=== PATIENT | male | born 1945 | race Caucasian/White ===

== ENCOUNTER 2021-01-15 06:18 | Day surgery (SDC) | payer MEDICARE, BC ==
[~2021-01-15] VITALS: Ht 182.9 cm; Wt 108.2 kg
[2021-01-15] VITALS (11 sets, daily range): BP systolic 91–122; BP diastolic 32–54; PULSE 61–92; TEMP 97.5–99.4
[~2021-01-15 06:18] MED LIST: AFRIN 15 ML15 ML NS; ASPIR-LOW81 MG PO; ATENOLOL25 MG PO; FISH OIL CONC1000 MG PO; HCTZ 25MG25 MG PO; LISINOPRIL; LORTAB 5/500 501 TAB PO; NIACIN 250250 MG/CAP PO; SUDAFED 12HR120 MG PO; VITAMIN C500 MG PO; ZOCOR80 MG PO; ZYRTEC 10MG
[2021-01-15] MEDS ORDERED: GLUCOPHAGE500 MG/TAB PO (07:30)
[2021-01-15] MEDS ORDERED: LASIX 40MG TABL40 MG PO (07:32)
[2021-01-15] MEDS ORDERED: COREG 6.256.25 MG/TA PO (07:32)
[2021-01-15] MEDS ORDERED: PRINIVIL40 MG PO (07:33)
[2021-01-15] MEDS ORDERED: ZYLOPRIM 300MG300 MG PO (07:34)
[2021-01-15] MEDS ORDERED: ALDACTONE 25MG25 M1 PO (07:34)
[2021-01-15] MEDS ORDERED: MAGNESIUM500 MG PO (07:35)
[2021-01-15] MEDS ORDERED: LIPITOR 40MG TA40 MG PO (07:35)
[2021-01-15] MEDS ORDERED: VITAMIN C500 MG PO (07:36)
[2021-01-15] MEDS ORDERED: IPRATROPIUM BROM3 M1 IH (07:37)
[2021-01-15] MEDS ORDERED: VITAMIN FLUSH-F1 CAP PO (07:37)
--- NOTE | 2021-01-15 09:55 | NUR ---
PATIENT ADMITED INTO ROOM 346 POST OP TURBT. A&O. NOTED SOFT B/P'S IN THE 90'S SYSTOLIC AND 30'S DIASTOLIC, ALL OTHER VSS. CHIN TO DD WITH CBI INFUSING AT MOD RATE. NOTED LARGE AMOUNTS OF CLEAR PEACH COLORED URINE. IV FLUIDS INFUSING INTO RIGHT FORARM IV. BS IN PACU WAS 113. NO C/O N/V. LIQUIDS AT BEDSIDE. HEAD TO TOE ASSESSMENT COMPLETE. AT BEDSIDE. CALL LIGHT IN REACH.
--- NOTE | 2021-01-15 22:03 | NUR ---
Patient assessed around 2029. Alert and oriented, and able to make needs known. Complained of level 7 pain to bladder. Given PRN B&O suppository per orders. Medication effective within 20 minutes. Denies SOB and dyspnea. LS CTA. Respirations even and unlabored. HRR. Capillary less than 3 seconds. Non-tenting skin turgor. BSAx4. Indwelling diallo catheter patent. CBI running, slow. Output peach/clear. No clots noted. No edema. Patient resting in bed with call light within reach. Voices no questions, needs, or concernsa t this time.
--- NOTE | 2021-01-15 23:58 | NUR ---
Patient given B&O suppository for bladder discomfort at this time. Voices no further questions, needs, or concerns at this time. CBI running slow, with peach, clear urine. No clots.
[2021-01-16 03:51] VITALS: BP 102/39; PULSE 73; TEMP 99.3
--- NOTE | 2021-01-16 05:50 | NUR ---
CBI continues at slow rate, with pale yellow output. Denies pain and discomfort at this time, stating he is feeling much better today than last night. Patient voices no questions, needs, or concerns at this time. Resting in bed with call light within reach.
[2021-01-16 07:44] VITALS: BP 99/74; PULSE 73; TEMP 98.9
--- NOTE | 2021-01-16 08:45 | NUR ---
PT RESTING IN BED WITH CBI RUNNING, VSS ASSESMENTS WNL. IV RUNNING. 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
[2021-01-16 12:00] VITALS: BP 115/49; PULSE 66; TEMP 97.7
[2021-01-16 15:18] VITALS: BP 118/51; PULSE 69; TEMP 98.5
--- NOTE | 2021-01-16 16:07 | NUR ---
Hospital Coordinator met with patient to discuss discharge plan. Patient's , Michelle (ph#[phone]) is at bedside. Patient lives with his in [place] and sees Dr. Carr for primary care. Patient obtains medications from [facility] with no difficulties. Patient uses a CPAP and no other DME. Patient is independent with ADLS. Patient reports he has completed Advance Directives in his trust. Patient plans to return home upon discharge. Discharge Plan: Home
[2021-01-16 21:20] VITALS: BP 100/66; PULSE 64; TEMP 97.9
--- NOTE | 2021-01-16 23:31 | NUR ---
Patient assesed around 2029. Alert and oriented, and able to make needs known. Given PRN levsin for mild bladder spasms, then a B&O suppository around 2200. INT to right forearm. Denies SOB and dyspnea. LS CTA. Respirations even and unlabored. HRR. Capillary refill less thna 3 seconds. Non-tenting skin turgor. BSAx4. Abdomen soft and non-tender. No edema. SCDs on. Indwelling diallo catheter. CBI continues, slow, with peach, clear urine output. Voices no questions, needs, or concerns at this time. Resting in bed with call light within reach.
[2021-01-16 23:42] VITALS: BP 111/53; PULSE 69; TEMP 98.1
--- NOTE | 2021-01-17 02:48 | NUR ---
Patient woke up confused around 0215. Reoriented patient, bed alarm on bed. Voices no questions, needs, or concerns at this time. Resting in bed with call light within reach.
[2021-01-17 04:24] VITALS: BP 100/42; PULSE 60; TEMP 98.4
--- NOTE | 2021-01-17 05:40 | NUR ---
Urine has been clear. CBI continues to be connected, but is not flowing at this time. Urine remain peach and clear. Denies having pain and discomfort at this time. Patient's Lasix not given at this time due to low BP. Patient voice no questions, needs, or concerns at this time, except asking when he will get his mitomycin. Explained to patient that the Dye Weigher Helper on day shift will be the one to give medication, and we can let him know an approximate time after she is here. Voiced understanding. Resting in bed with call light within reach. Bed alarm on.
[2021-01-17 08:04] VITALS: BP 90/53; PULSE 64; TEMP 98.8
--- NOTE | 2021-01-17 08:36 | NUR ---
PT RESTING IN BED. CBI STOPPED OVERNIGHT. DR CARROLL IN TO SEE PT THIS AM. RAFA DE LOS SANTOS RN TO ADMINISTER MITOMYCIN. PLAN ON DISCHARGE LATER THIS PM. PT IS A/O X3 THIS AM. EATING AND DRINKING SIN N/V. PAIN CONTROLLED AT THIS TIME.
--- NOTE | 2021-01-17 09:23 | NUR ---
Initial visit; Patient and his Michelle state that Yury did not receive good news this morning. Patient stated that Michelle needed the help and support right at this moment. Flotation Tender Helper talked with Michelle about Flotation Tender Helper availability and gave her Flotation Tender Helper's card. Flotation Tender Helper offered additional comfort and prayer and will continue to look in on Yury and Michelle.
[2021-01-17 12:21] VITALS: BP 103/44; PULSE 64; TEMP 98.8
--- NOTE | 2021-01-17 15:37 | NUR ---
DISCHARGE INSTRUCTIONS REVIEWED AFTER COMPLETING 6 BTTL ROUTINE. PT LEFT FLOOR AMBULATORY.
== END 2021-01-17 15:41 | disposition home or self-care (01) ==
LOC: SURG 06:18 → SDCO 06:18 → SURG 09:55 → SDCO 01-17 15:41
DX: C67.8 Malignant neoplasm of overlapping sites of bladder (principal); E11.9 Type 2 diabetes mellitus without complications; I11.0 Hypertensive heart disease with heart failure; I50.22 Chronic systolic (congestive) heart failure; I25.10 Atherosclerotic heart disease of native coronary artery without angina pectoris; I25.5 Ischemic cardiomyopathy; I25.2 Old myocardial infarction; G47.33 Obstructive sleep apnea (adult) (pediatric); J44.9 Chronic obstructive pulmonary disease, unspecified; M10.9 Gout, unspecified; E78.5 Hyperlipidemia, unspecified; I08.0 Rheumatic disorders of both mitral and aortic valves; Z95.1 Presence of aortocoronary bypass graft; Z85.820 Personal history of malignant melanoma of skin; Z95.810 Presence of automatic (implantable) cardiac defibrillator; Z79.84 Long term (current) use of oral hypoglycemic drugs; Z79.899 Other long term (current) drug therapy; Z87.891 Personal history of nicotine dependence
CPT/HCPCS: OP; J0694; J2250; J2704; J3010; J7120; J9280